=== PATIENT | male | born 1940 | race Caucasian/White ===

== ENCOUNTER 2023-05-01 09:02 | Outpatient (CLI) | payer MEDICARE | END 2023-05-01 09:03 | disposition home or self-care (01) | LOC: CSHCT 09:02 | PROVIDERS: ATTEND Neurological Surgery | DX: S32.00 Fracture of unspecified lumbar vertebra (principal); M54.9 Dorsalgia, unspecified; Z98.1 Arthrodesis status; M47.814 Spondylosis without myelopathy or radiculopathy, thoracic region; M47.816 Spondylosis without myelopathy or radiculopathy, lumbar region; M48.061 Spinal stenosis, lumbar region without neurogenic claudication | CPT/HCPCS: 72128; 72131 ==